=== PATIENT | female | born 1970 | race Caucasian/White ===

== ENCOUNTER → 2016-09-09 | Outpatient (CLI) | payer BC ==
[~2016-09-09] MED LIST: AMB5 PO; LEVOTHYROXINE; OXYC-57 PO
[2016-09-09 09:50] LABS: BLOOD UREA NITROGEN 18 mg/dl (7-18); CALCIUM 8.8 mg/dl (8.5-10.1); CARBON DIOXIDE 24 mmol/L (21-32); CHLORIDE 109 mmol/L (98-107); CHOLESTEROL 229 mg/dl (0-200); CREATININE 0.97 mg/dl (0.60-1.20); GLUCOSE 92 mg/dl (70-99); SODIUM 142 mmol/L (136-145); TRIGLYCERIDES 110 mg/dl (0-150); VERY LOW DENSITY LIPOPROT CALC 22 mg/dl
[2016-09-09 10:00] LABS: HDL CHOLESTEROL 46 mg/dl; LDL CHOLESTEROL CALCULATED 161 mg/dl
== END | disposition home or self-care (01) ==
LOC: C.LAB 07:18
PROVIDERS: ATTEND Nurse Practitioner Family
DX: E03.9 Hypothyroidism, unspecified (principal); E78.00 Pure hypercholesterolemia, unspecified

== ENCOUNTER → 2016-10-01 | Outpatient (CLI) | payer BC ==
--- NOTE | 2016-10-01 16:34 | DIAGNOSTIC IMAGING REPORT ---
LUMBAR SPINE 5 VIEWS CLINICAL HISTORY: Low back pain. Lumbar radiculopathy. FINDINGS: 5 views of the lumbar spine are correlated with abdominal CT dated 04/30/2007. The skeletal structures are well mineralized. There is no radiographic evidence of fracture or malalignment. Vertebral body height and alignment are maintained. The transverse and spinous processes are intact. There is no evidence of spondylolysis. Small anterior osteophytes are seen throughout. The intervertebral disc spaces are well-maintained. The visualized bony pelvis appears intact. There is a nonobstructed abdominal bowel gas pattern. There is moderate colonic fecal retention. IMPRESSION: No acute bony abnormality is seen involving the lumbosacral spine. Electronically signed by: Everett Howell M.D. 10/01/2016 4:33 PM Dictated Date/Time: 10/01/2016 4:31 PM
== END | disposition home or self-care (01) ==
LOC: C.RAD1850 16:14
PROVIDERS: ATTEND Nurse Practitioner Family
DX: M54.5 Low back pain (principal); M54.16 Radiculopathy, lumbar region

== ENCOUNTER → 2016-11-12 | Outpatient (CLI) | payer BC ==
--- NOTE | 2016-11-12 15:36 | DIAGNOSTIC IMAGING REPORT ---
LUMBAR SPINE MRI HISTORY: M54.5 Low back painR35.0 Urinary [id number] Weakness of ri TECHNIQUE: Multiplanar multisequence MRI of the lumbar spine was performed without the use of contrast. COMPARISON: Lumbar spine 10/01/2016. FINDINGS: For the purpose of the report the L5-S1 disc space will be located on axial image 21 of 24. Minimal dextroscoliosis. Alignment is intact. No fracture or subluxation. Lumbar subcutaneous edema. Hemangiomas at the T12 and L2 level. The T12 hemangioma measures 16 mm. Mild disc space narrowing and disc desiccation at L3-L4 and L4-L5. There is also mild disc desiccation at L2-L3. The conus terminates at the L2 level. The visualized retroperitoneal soft tissues are unremarkable. L1-L2: There is a large right paracentral disc extrusion demonstrating superior subligamentous migration. This measures 1.9 x 1.2 x 0.7 cm. This compresses the exiting right L1 nerve root and the transiting right L2 nerve root. This abuts the right-sided the distal thoracic spinal cord. No left-sided neural foraminal narrowing. L2-L3: Broad-based posterior disc bulge asymmetric to the right with a small right paracentral annular tear. No significant central canal narrowing. There is mild right-sided neural from narrowing. The asymmetric disc bulge appears to abut the exiting right L2 nerve root. L3-L4: Small broad-based posterior disc bulge with a tiny left paracentral annular tear. No significant central canal narrowing. Mild left-sided neural foraminal narrowing. L4-L5: Broad-based posterior disc bulge asymmetric to the left without significant central canal narrowing. There is an associated small left central focal disc protrusion which abuts the transiting left L5 nerve root and results in mild left neural foraminal narrowing. L5-S1: No significant central canal or neural foraminal narrowing. IMPRESSION: 1. There is a large right paracentral disc extrusion at L1-L2 demonstrating superior subligamentous migration. This measures 1.9 x 1.2 x 0.7 cm. This compresses the exiting right L1 nerve root and the transiting right L2 nerve root. This abuts the right-sided the distal thoracic spinal cord. 2. Broad-based posterior disc bulge at L4-5 with associated small left paracentral focal disc protrusion which abuts the transiting left L5 nerve root. 3. Broad-based posterior disc bulge asymmetric to the right at L2-L3 which abuts the exiting right L2 nerve root. 4. Additional degenerative changes as described above. 5. Minimal dextroscoliosis. Electronically signed by: Neftali Hendrix M.D. 11/12/2016 3:34 PM Dictated Date/Time: 11/12/2016 3:24 PM
== END | disposition home or self-care (01) ==
LOC: C.MRI 13:42
PROVIDERS: ATTEND Nurse Practitioner Family
DX: M54.5 Low back pain (principal); R29.898 Other symptoms and signs involving the musculoskeletal system; R20.0 Anesthesia of skin; R35.0 Frequency of micturition

== ENCOUNTER → 2017-06-10 | Outpatient (CLI) | payer BC | END | disposition home or self-care (01) | LOC: C.LAB 12:34 | PROVIDERS: ATTEND Nurse Practitioner Family | DX: E03.9 Hypothyroidism, unspecified (principal) ==

== ENCOUNTER → 2017-12-18 | Outpatient (CLI) | payer BC ==
[2017-12-18 09:33] LABS: BASO % 0.4 %; BASO ABS # 0.02 K/uL (0-0.2); EOS % 3.2 %; EOS ABS # 0.18 K/uL (0-0.5); HEMATOCRIT 39.7 % (37-47); HEMOGLOBIN 12.7 g/dL (12.0-16.0); IG# 0.01 K/uL (0.00-0.02); LYMPH % 32.1 %; LYMPH ABS # 1.82 K/uL (1.2-3.4); MEAN CELL VOLUME 82.4 fL (80-100); MEAN CORPUSCULAR HEMOGLOBIN 26.3 pg (25-34); MEAN PLATELET VOLUME 11.9 fL (7.4-10.4); MONO ABS # 0.51 K/uL (0.11-0.59); NEUT % 55.1 %; NEUT ABS # 3.13 K/uL (1.4-6.5); PLATELET COUNT 174 K/uL (130-400); RED CELL DISTRIBUTION WIDTH CV 14.9 % (11.5-14.5); RED CELL DISTRIBUTION WIDTH SD 44.7 fL (36.4-46.3); WHITE BLOOD COUNT 5.67 K/uL (4.8-10.8)
[2017-12-18 09:46] LABS: ALBUMIN 3.8 gm/dl (3.4-5.0); ALT/SGPT 17 U/L (12-78); AST/SGOT 13 U/L (15-37); BLOOD UREA NITROGEN 16 mg/dl (7-18); CALCIUM 8.5 mg/dl (8.5-10.1); CARBON DIOXIDE 25 mmol/L (21-32); CHOLESTEROL 219 mg/dl (0-200); CREATININE 1.07 mg/dl (0.60-1.20); GLUCOSE 90 mg/dl (70-99); POTASSIUM 3.9 mmol/L (3.5-5.1); SODIUM 139 mmol/L (136-145)
[2017-12-18 09:54] LABS: ALKALINE PHOSPHATASE 74 U/L (45-117); LDL CHOLESTEROL CALCULATED 152 mg/dl; TOTAL PROTEIN 6.5 gm/dl (6.4-8.2)
== END ==
LOC: C.LAB 06:54
PROVIDERS: ATTEND Nurse Practitioner Family
DX: E03.9 Hypothyroidism, unspecified (principal); E78.00 Pure hypercholesterolemia, unspecified; I73.00 Raynaud's syndrome without gangrene

== ENCOUNTER → 2018-03-30 | Outpatient (CLI) | payer BC ==
--- NOTE | 2018-03-31 14:55 | MAMMOGRAPHY REPORT ---
BILATERAL DIGITAL SCREENING MAMMOGRAM TOMOSYNTHESIS WITH CAD: 03/30/2018 CLINICAL HISTORY: Routine screening. TECHNIQUE: The study was acquired using full field digital technology and interpreted from soft copy. Breast tomosynthesis in addition to standard 2D mammography was performed. Current study was also ev aluated with a Computer Aided Detection (CAD) system. COMPARISON: Comparison is made to exams dated: 03/21/2016 mammogram, 09/21/2015 mammogram, 08/30/2015 mammogram, and 08/04/2012 mammogram - [facility]. BREAST COMPOSITION: There are scattered areas of fibroglandular density in both breasts. FINDINGS: Stable asymmetry in the right upper outer posterior breast. No suspicious mass, architectur al distortion or cluster of microcalcifications is seen. IMPRESSION: ACR BI-RADS CATEGORY 1: NEGATIVE There is no mammographic evidence of malignancy. A 1 year screening mammogram is recommended.( [id number]) The patient will receive written notification of the results. Some breast cancers are not detected with mammography. A negative mammographic report should not fatimah y biopsy if a clinically suggestive mass is present. Bella Guzman M.D. ay/:03/30/2018 15:28:57 Case Therapist: RT Anamaria([place])(M), [facility] letter sent: Normal 1/2 BI-RADS Code: ACR BI-RADS Category 1: Negative
== END | disposition home or self-care (01) ==
LOC: C.MAMM 10:41
PROVIDERS: ATTEND Physician Assistant
DX: Z12.31 Encounter for screening mammogram for malignant neoplasm of breast (principal)